=== PATIENT | male | born 1930 ===

== ENCOUNTER → 2017-08-18 | Outpatient (CLI) | payer MEDICARE ==
[2017-08-18 09:16] LABS: Hemoglobin 12.2 g/dL (13.5-17.5)
[2017-08-18 09:28] LABS: Mean Corpuscular Hemoglobin 23.7 pg (28.0-32.0)
[2017-08-18 09:29] LABS: Urine Bacteria FEW /hpf (None Seen); Urine Blood Negative /uL (Negative); Urine Hyaline Cast MANY /lpf (0 - 2); Urine Mucus FEW (None Seen); Urine Specific Gravity 1.023 (1.001-1.035); Urine WBC 1 /hpf (0 - 3)
[2017-08-18 09:30] LABS: Mean Corpuscular Hgb Conc. 31.3 g/dL (32.0-36.0); Mean Corpuscular Volume 75.9 fL (80.0-100.0); Platelet Count (auto) 205 10^3/uL (140-450); Red Blood Cells 5.14 10^6/uL (4.5-5.90); White Blood Cell 5.2 10^3/uL (4.4-10.8)
[2017-08-18 09:32] LABS: Red Cell Distribution Width 22.4 % (11.8-14.3)
[2017-08-18 09:33] LABS: Band Neutrophils % (manual) 0; Basophils % (manual) 0 (0.0-2.0); Blast Cells 0; Metamyelocytes % 0; Myelocytes % 0; Promyelocytes % 0
[2017-08-18 09:48] LABS: Albumin 3.8 g/dL (3.4-5.0); BUN/Creatinine Ratio 18.3; Bilirubin, Total 0.6 mg/dL (0.2-1.0); Calcium 9.2 mg/dL (8.5-10.1); Potassium 4.9 mmol/L (3.5-5.1); Total Protein 8.2 g/dL (6.4-8.2)
[2017-08-18 10:42] LABS: Eosinophils % (manual) 8 (0-7); Lymphocytes % (manual) 51 (10.0-50.0); Monocytes % (manual) 6 (0-12); Reactive Lymphocytes 6
== END | disposition home or self-care (01) ==
LOC: LAB 08:43
PROVIDERS: ATTEND Nurse Practitioner
DX: E03.9 Hypothyroidism, unspecified (principal); E78.5 Hyperlipidemia, unspecified; Z79.899 Other long term (current) drug therapy
CPT/HCPCS: 36415; 80053; 81001; 82306; 83036; 84443; 85007; 85027

== ENCOUNTER 2021-04-28 10:24 | Inpatient (IN) | payer OTHER, MEDICAID ==
[~2021-04-28] VITALS: Ht 172.7 cm; Wt 55.5 kg
[2021-04-28] MEDS ORDERED: dilTIAZem 25 MG/5 ML VIAL IV ONE ×3 (11:45→22:15)
[2021-04-28 13:45] LABS: Basophils # (auto) 0.1 10 ^3/uL (0-0.2); Eosinophils # (auto) 0 10 ^3/uL (0-0.8); Eosinophils % (auto) 0.1 % (0.0-7.0); Hematocrit 45.8 % (41.0-53.0); Hemoglobin 14.9 g/dL (13.5-17.5); Mean Corpuscular Hemoglobin 30.2 pg (28.0-32.0); Mean Corpuscular Hgb Conc. 32.5 g/dL (32.0-36.0); Mean Corpuscular Volume 92.8 fL (80.0-100.0); Monocytes # (auto) 0.3 10 ^3/uL (0-1.3); Monocytes % (auto) 6.5 % (0.0-12.0); Neutrophils % (auto) 67.4 % (37.0-80.0); Nucleated Red Blood Cells % 0.2 %; Red Blood Cells 4.94 10^6/uL (4.5-5.90); Red Cell Distribution Width 20.4 % (11.8-14.3); White Blood Cell 4.5 10^3/uL (4.4-10.8)
[2021-04-28 14:02] LABS: INR 1.1 (0.9-1.15); Partial Thromboplastin Time 28.8 sec (23.6-33.0)
[2021-04-28 14:55] LABS: Albumin 2.7 g/dL (3.4-5.0); BUN/Creatinine Ratio 30.4; Bilirubin, Total 0.9 mg/dL (0.2-1.0); Calcium 8.6 mg/dL (8.5-10.1); Total Protein 7.1 g/dL (6.4-8.2)
[2021-04-28 15:22] LABS: Potassium 5.8 mmol/L (3.5-5.1)
[2021-04-28] MEDS ORDERED: MORPHINE SULFATE INJECTION 2 MG/ML SYRG IV PRN ×2 (17:30→21:00)
[2021-04-28] MEDS ORDERED: SODIUM ZIRCONIUM CYCL 10 GM PAK PO ONE (17:30)
[2021-04-28] MEDS ORDERED: DEXTROSE (50%) 50ML SYRG IV ONE (17:30)
[2021-04-28] MEDS ORDERED: InsuLIN REG 1unit/0.01ml Soln (100units/ml) IV ONE (17:30)
[2021-04-28] MEDS ORDERED: NITROGLYCERIN 0.4 MG SL TAB SL PRN (17:30)
[2021-04-28] MEDS ORDERED: ALBUTEROL SULF 2.5 MG/0.5ML(0.5%) NEB SOLN NEB ONE (17:30)
[2021-04-28] MEDS ORDERED: CALCIUM CHL 100MG/ML 1,000 MG in D5W 5% 100 ML IV ONE (17:30)
[2021-04-28] MEDS ORDERED: FUROSEMIDE 40 MG/4 ML VIAL IV ONE (17:30)
[2021-04-28] MEDS ORDERED: SODIUM BICARBONATE 8.4% INJ 50ML SYRINGE IV ONE (17:30)
[2021-04-28 18:49] VITALS: BP 139/99
[2021-04-28] MEDS ORDERED: HYDR12.56 PO (20:58)
[2021-04-28] MEDS ORDERED: HYDR25TA5 GT (20:58)
[2021-04-28] MEDS ORDERED: DILT120T8 PO (20:58)
[2021-04-28] MEDS ORDERED: MECL12.514 PO (20:58)
[2021-04-28] MEDS ORDERED: APIX2.5T PO (20:58)
[2021-04-28] MEDS ORDERED: ATOR10TA52 PO (20:58)
[2021-04-28] MEDS ORDERED: METO-159 PO (20:58)
[2021-04-28] MEDS ORDERED: LEV25T PO (20:59)
[2021-04-28] MEDS ORDERED: [UNRECOGNIZED DRUG - CODE] PO (20:59)
[2021-04-28] MEDS ORDERED: cefTRIAXone 1GM/50ML D5W 50 ML IV ONE (21:00)
[2021-04-28] MEDS ORDERED: FAMOTIDINE (10MG/ML) 2ML VL IV ONE (21:00)
[2021-04-28] MEDS ORDERED: DOCUSATE SOD 100 MG CAP PO PRN (21:00)
[2021-04-28] MEDS ORDERED: METOPROLOL SUCCINATE XL 50 MG TAB PO ONE (21:00)
[2021-04-28] MEDS ORDERED: ONDANSETRON HCL 4 MG/2 ML VIAL IV PRN (21:00)
[2021-04-28] MEDS ORDERED: AZITHROMYCIN 500MG/ 250ML 250 ML IV ONE (21:00)
[2021-04-28 22:00] VITALS: BP 134/109
[2021-04-28 22:02] LABS: Cholesterol 101 mg/dL (< 200)
[2021-04-28 22:04] LABS: HDL Cholesterol 40 mg/dL (40-59); LDL Cholesterol 55 mg/dL (< 100); Triglycerides 97 mg/dL (< 150)
[2021-04-28] MEDS ORDERED: cefTRIAXone 1GM/50ML D5W 50 ML IV SCH (22:34)
[2021-04-29] MEDS: APIXABAN 2.5 MG TAB PO SCH ×2 (00:16→09:16)
[2021-04-29] MEDS: ISOSORBIDE MONONITRATE 20 MG TAB PO SCH ×2 (00:17→09:17)
[2021-04-29] MEDS: ATORVASTATIN 20 MG TAB PO SCH (00:18)
[2021-04-29 05:00] VITALS: BP 121/67
[2021-04-29] MEDS ORDERED: FUROSEMIDE 20 MG/2 ML VIAL IV SCH (06:00)
[2021-04-29] MEDS: LEVOTHYROXINE SODIUM 25 MCG TAB PO SCH (06:53)
[2021-04-29] MEDS: SODIUM ZIRCONIUM CYCL 10 GM PAK PO SCH ×3 (06:53→21:59)
[2021-04-29 08:18] LABS: Amphetamine Screen, Urine NEGATIVE (NEGATIVE); Barbiturate Scree,Urine NEGATIVE (NEGATIVE); Benzodiazephine Screen, Urine NEGATIVE (NEGATIVE); Cannabinoid Screen, Urine NEGATIVE (NEGATIVE); Cocaine Screen, Urine NEGATIVE (NEGATIVE); Opiate Scree,Urine NEGATIVE (NEGATIVE); Phencyclidine Screen, Urine NEGATIVE (NEGATIVE)
[2021-04-29 08:22] LABS: Urine Bacteria NONE SEEN /hpf (None Seen); Urine Blood Negative /uL (Negative); Urine Mucus FEW (None Seen); Urine Specific Gravity 1.013 (1.001-1.035); Urine WBC 1 /hpf (0 - 3)
[2021-04-29 09:00] VITALS: BP 111/59
[2021-04-29] MEDS: METOPROLOL SUCCINATE XL 50 MG TAB PO SCH (09:16)
[2021-04-29] MEDS: dilTIAZem 120MG ER CAP PO SCH (10:00)
[2021-04-29] MEDS ORDERED: FAMOTIDINE (10MG/ML) 2ML VL IV SCH (10:00)
[2021-04-29] MEDS ORDERED: ASPirin 81 mg TAB PO SCH (10:00)
[2021-04-29] MEDS ORDERED: AZITHROMYCIN 500MG/ 250ML 250 ML IV SCH (10:00)
[2021-04-29 11:22] LABS: Basophils # (auto) 0 10 ^3/uL (0-0.2); Basophils % (auto) 0.4 % (0.0-2.0); Eosinophils # (auto) 0 10 ^3/uL (0-0.8); Eosinophils % (auto) 0.3 % (0.0-7.0); Hemoglobin 13.5 g/dL (13.5-17.5); Lymphocytes # (auto) 1.5 10 ^3/uL (0.4-5.4); Mean Corpuscular Hemoglobin 30.1 pg (28.0-32.0); Mean Corpuscular Hgb Conc. 32.8 g/dL (32.0-36.0); Mean Corpuscular Volume 91.6 fL (80.0-100.0); Monocytes # (auto) 0.4 10 ^3/uL (0-1.3); Neutrophils # (auto) 1.8 10 ^3/uL (1.6-8.6); Neutrophils % (auto) 48.3 % (37.0-80.0); Nucleated Red Blood Cells % 0.3 %; Red Blood Cells 4.48 10^6/uL (4.5-5.90); Red Cell Distribution Width 20.6 % (11.8-14.3); White Blood Cell 3.8 10^3/uL (4.4-10.8)
[2021-04-29 11:38] LABS: Albumin 2.5 g/dL (3.4-5.0); Calcium 8.8 mg/dL (8.5-10.1); Magnesium 3.3 mg/dL (1.6-2.6)
[2021-04-29 11:43] LABS: INR 1.16 (0.9-1.15); Partial Thromboplastin Time 31.3 sec (23.6-33.0)
[2021-04-29 11:46] LABS: Bilirubin, Total 0.8 mg/dL (0.2-1.0); Phosphorus 2.7 mg/dL (2.5-4.90); Total Protein 6.2 g/dL (6.4-8.2)
[2021-04-29 12:00] VITALS: BP 105/66
[2021-04-29] MEDS ORDERED: BRIM0.2S17 EACHEYE (16:11)
[2021-04-29] MEDS ORDERED: DORZ1SOL6 EACHEYE (16:11)
[2021-04-29] MEDS ORDERED: HYDR12.55 PO (16:11)
[2021-04-29] MEDS ORDERED: BIMA0.01 EACHEYE (16:11)
[2021-04-29] MEDS ORDERED: MECL12.514 PO (16:11)
[2021-04-29 17:00] VITALS: BP 101/74
[2021-04-29] MEDS ORDERED: LORazepam 2MG/ML-1ML VIAL IV PRN (22:15)
[2021-04-29 23:58] LABS: Folate (Folic Acid) 23.02 ng/mL (5.38-24)
[2021-04-30] MEDS: APIXABAN 2.5 MG TAB PO SCH ×2 (00:36→11:22)
[2021-04-30] MEDS: ISOSORBIDE MONONITRATE 20 MG TAB PO SCH ×3 (00:36→23:17)
[2021-04-30] MEDS: ATORVASTATIN 20 MG TAB PO SCH ×2 (00:37→23:17)
[2021-04-30] MEDS: SODIUM ZIRCONIUM CYCL 10 GM PAK PO SCH ×3 (05:39→22:00)
[2021-04-30] MEDS: LEVOTHYROXINE SODIUM 25 MCG TAB PO SCH (06:07)
[2021-04-30] MEDS ORDERED: IOHEXOL 350 MG/ML 100ML IJ ONE (08:26)
[2021-04-30 08:30] VITALS: BP 109/74
[2021-04-30] MEDS: FUROSEMIDE 40 MG TAB PO SCH (10:00)
[2021-04-30] MEDS: POTASSIUM CHLORIDE 8 MEQ TAB PO SCH (11:24)
[2021-04-30] MEDS: METOPROLOL SUCCINATE XL 50 MG TAB PO SCH (11:26)
[2021-04-30] MEDS: dilTIAZem 120MG ER CAP PO SCH (11:29)
[2021-04-30 12:30] VITALS: BP 111/72
[2021-04-30 17:00] VITALS: BP 114/54
[2021-04-30 19:12] LABS: Basophils # (auto) 0 10 ^3/uL (0-0.2); Basophils % (auto) 0.4 % (0.0-2.0); Eosinophils # (auto) 0 10 ^3/uL (0-0.8); Eosinophils % (auto) 0.4 % (0.0-7.0); Hematocrit 43.4 % (41.0-53.0); Hemoglobin 14.5 g/dL (13.5-17.5); Lymphocytes # (auto) 1.4 10 ^3/uL (0.4-5.4); Lymphocytes % (auto) 36.1 % (10.0-50.0); Mean Corpuscular Hemoglobin 30.3 pg (28.0-32.0); Mean Corpuscular Hgb Conc. 33.4 g/dL (32.0-36.0); Mean Corpuscular Volume 90.9 fL (80.0-100.0); Monocytes # (auto) 0.4 10 ^3/uL (0-1.3); Monocytes % (auto) 8.8 % (0.0-12.0); Neutrophils # (auto) 2.1 10 ^3/uL (1.6-8.6); Neutrophils % (auto) 54.3 % (37.0-80.0); Nucleated Red Blood Cells % 0.6 %; Red Blood Cells 4.77 10^6/uL (4.5-5.90); Red Cell Distribution Width 20.3 % (11.8-14.3)
[2021-04-30 19:31] LABS: BUN/Creatinine Ratio 24.8; Calcium 8.8 mg/dL (8.5-10.1); Potassium 3.9 mmol/L (3.5-5.1)
[2021-04-30 22:00] VITALS: BP 150/85
[2021-04-30] MEDS: ENOXAPARIN SOD 60 MG/0.6 ML SYRINGE SC SCH (23:18)
[2021-05-01 05:00] VITALS: BP 102/68
[2021-05-01 06:27] LABS: Basophils # (auto) 0 10 ^3/uL (0-0.2); Basophils % (auto) 0.2 % (0.0-2.0); Eosinophils # (auto) 0 10 ^3/uL (0-0.8); Eosinophils % (auto) 0.6 % (0.0-7.0); Hemoglobin 13.9 g/dL (13.5-17.5); Lymphocytes # (auto) 1.6 10 ^3/uL (0.4-5.4); Lymphocytes % (auto) 43.9 % (10.0-50.0); Mean Corpuscular Hemoglobin 30.2 pg (28.0-32.0); Mean Corpuscular Hgb Conc. 33.1 g/dL (32.0-36.0); Mean Corpuscular Volume 91.1 fL (80.0-100.0); Monocytes # (auto) 0.4 10 ^3/uL (0-1.3); Monocytes % (auto) 11.1 % (0.0-12.0); Neutrophils # (auto) 1.6 10 ^3/uL (1.6-8.6); Neutrophils % (auto) 44.2 % (37.0-80.0); Nucleated Red Blood Cells % 0.2 %; Red Blood Cells 4.61 10^6/uL (4.5-5.90); White Blood Cell 3.7 10^3/uL (4.4-10.8)
[2021-05-01 06:31] LABS: Potassium 3.3 mmol/L (3.5-5.1)
[2021-05-01 06:34] LABS: BUN/Creatinine Ratio 27.1; Calcium 8.7 mg/dL (8.5-10.1)
[2021-05-01 06:51] LABS: Red Cell Distribution Width 20.1 % (11.8-14.3)
[2021-05-01] MEDS: LEVOTHYROXINE SODIUM 25 MCG TAB PO SCH ×2 (07:00→08:58)
[2021-05-01] MEDS: dilTIAZem 120MG ER CAP PO SCH (08:52)
[2021-05-01] MEDS: METOPROLOL SUCCINATE XL 50 MG TAB PO SCH (08:58)
[2021-05-01] MEDS: POTASSIUM CHLORIDE 8 MEQ TAB PO SCH (09:00)
[2021-05-01] MEDS: ISOSORBIDE MONONITRATE 20 MG TAB PO SCH ×2 (09:13→22:05)
[2021-05-01] MEDS: FUROSEMIDE 40 MG TAB PO SCH (10:00)
[2021-05-01] MEDS: ENOXAPARIN SOD 60 MG/0.6 ML SYRINGE SC SCH ×2 (10:00→22:04)
[2021-05-01] MEDS ORDERED: SIMETHICONE 40 MG/0.6 ML ORAL DROP ONE (12:55)
[2021-05-01] MEDS ORDERED: MIDAZOLAM HCL 5 MG/ML-1ML VIAL ONE (12:55)
[2021-05-01] MEDS ORDERED: FLUMAZENIL 0.1 MG/ML INJ 10ML MDV IV ONE (12:55)
[2021-05-01] MEDS ORDERED: NALOXONE HCL 0.4 MG/ML VIAL ONE (12:55)
[2021-05-01] MEDS ORDERED: SODIUM CHLORIDE LOCK 10 ML ONE (12:55)
[2021-05-01] MEDS ORDERED: diphenhdrAMINE HCL 50 MG/1 ML VL ONE (12:56)
[2021-05-01] MEDS ORDERED: LIDOCAINE VISCOUS 2% 15ML UD ONE (12:58)
[2021-05-01] MEDS ORDERED: fentaNYL CITRATE 100 MCG/2 ML VL ONE (13:02)
[2021-05-01 22:00] VITALS: BP 108/87
[2021-05-01] MEDS: ATORVASTATIN 20 MG TAB PO SCH (22:04)
[2021-05-02 05:00] VITALS: BP 116/72
[2021-05-02 08:00] LABS: Basophils # (auto) 0 10 ^3/uL (0-0.2); Basophils % (auto) 0.3 % (0.0-2.0); Eosinophils # (auto) 0 10 ^3/uL (0-0.8); Hematocrit 42.5 % (41.0-53.0); Hemoglobin 14.1 g/dL (13.5-17.5); Lymphocytes # (auto) 1.4 10 ^3/uL (0.4-5.4); Lymphocytes % (auto) 38.8 % (10.0-50.0); Mean Corpuscular Hgb Conc. 33.2 g/dL (32.0-36.0); Mean Corpuscular Volume 90.2 fL (80.0-100.0); Monocytes # (auto) 0.4 10 ^3/uL (0-1.3); Monocytes % (auto) 11.8 % (0.0-12.0); Neutrophils # (auto) 1.8 10 ^3/uL (1.6-8.6); Neutrophils % (auto) 48.1 % (37.0-80.0); Nucleated Red Blood Cells % 0.2 %; Red Blood Cells 4.71 10^6/uL (4.5-5.90); White Blood Cell 3.7 10^3/uL (4.4-10.8)
[2021-05-02 08:07] LABS: Potassium 3.3 mmol/L (3.5-5.1)
[2021-05-02 08:09] LABS: BUN/Creatinine Ratio 29.5; Calcium 8.9 mg/dL (8.5-10.1)
[2021-05-02] MEDS: dilTIAZem 120MG ER CAP PO SCH (08:51)
[2021-05-02] MEDS: POTASSIUM CHLORIDE 8 MEQ TAB PO SCH (08:52)
[2021-05-02] MEDS: ISOSORBIDE MONONITRATE 20 MG TAB PO SCH (08:52)
[2021-05-02] MEDS: FUROSEMIDE 40 MG TAB PO SCH (08:52)
[2021-05-02] MEDS: ENOXAPARIN SOD 60 MG/0.6 ML SYRINGE SC SCH (08:53)
[2021-05-02] MEDS: METOPROLOL SUCCINATE XL 50 MG TAB PO SCH (08:53)
[2021-05-02 09:00] VITALS: BP 116/70
[2021-05-02] MEDS ORDERED: POTASSIUM EFFERVESENT TAB 25 MEQ PO ONE (12:15)
[2021-05-02] MEDS ORDERED: FURO40TA4 PO (12:15)
[2021-05-02] MEDS ORDERED: POTA8TAB2 PO (12:15)
[2021-05-02] MEDS ORDERED: METO-6 PO (12:15)
[2021-05-02] MEDS ORDERED: ISO20T PO (12:15)
[2021-05-02 13:00] VITALS: BP 102/67
[2021-05-02 14:31] VITALS: BP 102/67
[2021-05-02 17:00] VITALS: BP 99/72
[2021-05-02] MEDS ORDERED: ASCORBIC ACID 500 MG TAB PO SCH (22:00)
[2021-05-03] MEDS ORDERED: CHOLECALCIFEROL (VITD3) 2,000 UNIT CAP/TAB PO SCH (10:00)
[2021-05-03] MEDS ORDERED: ZINC SULFATE 220mg CAP or TAB PO SCH (10:00)
== END 2021-05-02 20:17 | disposition hospice, home (50) | DRG 871 ==
LOC: EDBD 10:24 → EDUNIT# 10:24 → ER 10:33 → TELE 17:24 → TELE-CENTR 18:27 → TELE-EAST 05-01 12:00
PROVIDERS: ADMIT Hospitalist; ATTEND Internal Medicine
PROC: 4B02XSZ Measurement of Cardiac Pacemaker, External Approach (ICD-10-PCS; principal; 2021-04-29)
DX: A41.89 Other specified sepsis (principal); G93.41 Metabolic encephalopathy; J12.82 Pneumonia due to coronavirus disease 2019; U07.1 COVID-19; I48.19 Other persistent atrial fibrillation; N39.0 Urinary tract infection, site not specified; E44.0 Moderate protein-calorie malnutrition; J44.0 Chronic obstructive pulmonary disease with (acute) lower respiratory infection; R64 Cachexia; Z68.1 Body mass index [BMI] 19.9 or less, adult; I47.1 Supraventricular tachycardia; I50.9 Heart failure, unspecified; E88.09 Other disorders of plasma-protein metabolism, not elsewhere classified; R16.0 Hepatomegaly, not elsewhere classified; E87.5 Hyperkalemia; I25.10 Atherosclerotic heart disease of native coronary artery without angina pectoris; E03.9 Hypothyroidism, unspecified; E78.5 Hyperlipidemia, unspecified; E87.6 Hypokalemia; Y71.2 Prosthetic and other implants, materials and accessory cardiovascular devices associated with adverse incidents; R79.89 Other specified abnormal findings of blood chemistry; R55 Syncope and collapse; R59.9 Enlarged lymph nodes, unspecified; F03.90 Unspecified dementia, unspecified severity, without behavioral disturbance, psychotic disturbance, mood disturbance, and anxiety; F17.200 Nicotine dependence, unspecified, uncomplicated; I11.0 Hypertensive heart disease with heart failure; K31.9 Disease of stomach and duodenum, unspecified; R62.7 Adult failure to thrive; Z79.01 Long term (current) use of anticoagulants; Z79.899 Other long term (current) drug therapy; Z82.49 Family history of ischemic heart disease and other diseases of the circulatory system; Z86.73 Personal history of transient ischemic attack (TIA), and cerebral infarction without residual deficits; Z95.0 Presence of cardiac pacemaker
CPT/HCPCS: 36415; 70450; 70551; 71045; 71275; 80048; 80053; 80061; 80307; 81001; 82105; 82378; 82550; 82746; 82962; 83036; 83735; 83880; 84100; 84132; 84443; 84484; 85025; 85379; 85610; 85730; 86301; 87040; 87086; 87426; 93005; 93306; 93886; 93970; 94640; 95819; 96374; 97163; 99291; G0378; J0696; J1815; J2250; J3490; J7060